=== PATIENT | male | born 1955 | race Caucasian/White ===

== ENCOUNTER 2024-07-08 09:34 | Emergency (ER) | payer OTHER ==
[2024-07-08] MEDS ORDERED: HYDROcodone/Acetaminophen 10/325 mg Tablet ONE (09:50)
== END 2024-07-08 10:45 | disposition home or self-care (01) ==
LOC: CSHERS 09:34
DX: S43.422A Sprain of left rotator cuff capsule, initial encounter (principal); X58.XXXA Exposure to other specified factors, initial encounter
CPT/HCPCS: 72220; 99283